=== PATIENT | female | born 1950 | race Caucasian/White ===

== ENCOUNTER 2016-05-12 17:12 | Emergency (ER) | payer OTHER ==
[~2016-05-12] VITALS: Ht 160 cm; Wt 108.9 kg
[~2016-05-12 17:12] MED LIST: AUGMENTIN 500-1 EACH PO; VALIUM2 M1 PO
--- NOTE | 2016-05-12 17:25 | ED MVC/FALL/TRAUMA COMPLAINT ---
History of Present Illness General Chief Complaint: Low Back Pain/Injury Stated Complaint: BIBA BACK PAIN Source: patient, old records Exam Limitations: no limitations Vital Signs & Intake/Output Vital Signs & Intake/Output Vital Signs Date Time Temp Pulse Resp B/P Pulse O2 O2 Flow FiO2 Ox Delivery Rate 05/12 1940 72 18 149/69 95 Room Air 05/12 1719 78 16 154/72 97 Room Air Allergies Coded Allergies: NO KNOWN ALLERGIES (NKA 05/12/16) Reconcile Medications Augmentin (Augmentin 500-125 Tablet) 1 EACH TABLET 1 TAB PO TID DOG BITE Benazepril HCl 40 MG TABLET 1 TAB PO DAILY HTN (Reported) Cyclobenzaprine HCl 5 MG TABLET 1 TAB PO TIDPRN PRN PAIN Diazepam (Valium) 2 MG TABLET 1-2 TAB PO TID PRN DIZZINESS Duloxetine HCl (Cymbalta) 60 MG CAPSULE.DR 1 CAP PO DAILY BACK PAIN (Reported ) Levothyroxine Sodium 50 MCG TABLET 1 TAB PO DAILY HYPOTHYROID (Reported) Methylprednisolone. (Medrol) 4 MG TAB.DS.PK 1 DP PO AD RADICULOPATHY 6 on day 1 then reduce by one tablet daily until gone Multiple Vitamin (Multivitamins) 1 EACH TABLET 1 TAB PO DAILY VITAMINS ( Reported) Oxycodone HCl 10 MG TABLET 1 TAB PO TID PRN PAIN Zolpidem Tartrate (Ambien) 10 MG TABLET 1 TAB PO QPMP INSOMNIA (Reported) Triage Note: BIBA FROM HOME C/O BACK PAIN S/P FALL. HX SPINAL STENOSIS. PT SLIPPED AND FELL BACKWARDS ON STEPS TODAY. PAIN WAS PROGRESSIVELY GETTING WORSE. NO RELIEF WITH PERCOCET OR LIDOCAINE PATCH. DENIES HEADSTRIKE/LOC. Triage Nurses Notes Reviewed? yes Onset: Abrupt Duration: hour(s): (8), constant, waxing and waning Timing: recent history Severity: moderate Severity Numbers: 9 Injuries/Fall Location: back Method of Injury: TWISTED Loss of Consciousness: no loss of consciousness Modifying Factors: Improves With: rest. Worsens With: movement, palpation. Associated Symptoms: DENIES HPI: 65-year-old female history of hypertension hypothyroid chronic back pain for which she is in pain management presents complaining of an exacerbation of her pain after she states she almost fell around 9:00 this morning causing her to twist her back. She now presents complaining of moderate to severe aching left lower back pain radiating down her left leg unrelieved with taking her 's Percocet and using a Lidoderm patch. There was no fall to the ground no other trauma she denies any hip knee or foot pain no numbness or tingling. No urinary or bowel incontinence no fever no chills her last dose of Percocet was at 2 PM this afternoon symptoms are worse with change of position better at rest (SUE ROCHA) Past History Travel History Traveled to [place] past 21 day No Medical History Any Pertinent Medical History? see below for history Neurological: NONE EENT: NONE Cardiovascular: hypertension Respiratory: NONE Gastrointestinal: NONE Hepatic: NONE Renal: NONE Musculoskeletal: BACK PAIN Psychiatric: NONE Endocrine: hypothyroidism Blood Disorders: NONE Cancer(s): NONE PARALEGALS/Reproductive: NONE Tetanus Vaccine: 07/09/15 Surgical History Surgical History: non-contributory Psychosocial History What is your primary language [place]al[place] Tobacco Use: Never used ETOH Use: occasional use Illicit Drug Use: denies illicit drug use Family History Hx Contributory? No (SUE ROCHA) Review of Systems Review of Systems Constitutional: Reports: see HPI. All Other Systems: Reviewed and Negative Comments Review of systems: See HPI, All other systems negative. Constitutional, no chills no fever, no malaise no weight loss HEENT: no sore throat no congestion, Cardiovascular: No chest pain , no palpitation Skin, no rashes, no change in skin Respiratory: No dyspnea no cough GI: No nausea no vomiting, no diarrhea, : No dysuria No hematuria, no frequency, no discharge Muscle skeletal: No joint pain, no joint swelling, back pain, no neck pain, Neurologic: no headache Psych: No stress Heme/endocrine: No bruising no bleeding Immunology: No lymphadenopathy, (SUE ROCHA) Physical Exam Physical Exam General Appearance: well developed/nourished, no apparent distress, alert, awake Comments: Well-developed well-nourished person in no acute distress HEENT: Normal EENT exam; PERRL, EOMI, no nystagmus. HEAD is atraumatic. moist mucous membranes. Neck: Supple, normal range of motion Back: Left paralumbar muscle tenderness to palpation, no CVA tenderness. Full range of motion Cardiovascular: Regular rate and rhythms no murmurs = Respiratory:=No respiratory distress. Patient speaking in full complete sentences. Breath sounds clear to auscultation bilaterally: NO W/R/R Abdomen: Soft, obese nontender nondistended, no appreciable organomegaly. Normal bowel sounds. No rebound/guarding, No appreciable enlargement of the abdominal aorta, No ascites. Upper Extremity: No edema, full range of motion of extremities, normal and equal pulses bilaterally, 5 out of 5 strength noted to bilateral upper and lower extremities Hip/Pelvis: Atraumatic/Stable. FROM. No pain with pelvic compression Knee: Atraumatic/stable. FROM. No joint swelling, no effusion. No laxity. Negative porter/anterior drawer test. No pain with ROM Leg: Atraumatic. Nontender. No edema, 5 out of 5 strength in the lower extremity, normal dorsiflexion of great toe bilaterally, gross sensation is intact Ankle/Foot: Atraumatic/stable. Skin intact. FROM. No swelling, no effusion. No laxity on exam Pulses: Normal/equal DP/PT pulses bilaterally. Brisk cap refill Neuro: Alert oriented x3, motor sensory normal, There were no obvious focal neurologic abnormalities. Skin: No appreciable rash on exposed skin, skin is warm and dry. Psych: Mood and affect is normal, memory and judgment is normal. Core Measures ACS in differential dx? No Severe Sepsis Present: No Septic Shock Present: No (TURNER GRUBER,SUE) Progress Differential Diagnosis: C/T/L spine injury, ext injury, pelvis injury, spinal cord injury Plan of Care: Orders Procedure Date/time Status CT LUMB SPINE WO IV CONTRAST 05/12 1733 Active Current Medications Sig/Aye Start time Last Medication Dose Stop Time Status Admin Diazepam 2.5 MG ONCE ONE 05/12 1744 UNVr (Valium) 05/12 1745 Hydromorphone HCl 1 MG ONCE ONE 05/12 1744 UNVr (Dilaudid) 05/12 1745 Patient medicated Dilaudid 1 mg IV Valium IV CAT scan ordered case discussed with Dr. Colby. Repeat evaluation patient reports no relief of pain patient medicated with morphine 6 mg IV 05/12/2016 7:37:16 PM discussed with the patient and her at length all of her CAT scan findings incidental findings. Patient feels comfortable with discharge at this time reports morphine has helped with pain I discussed with the patient at length all of their results. I had an extensive conversation regarding need for close follow up with their primary care physician this week as well as return precautions. I answered all of their questions, they feel comfortable with the plan and follow-up care. I discussed the medications that they will receive with the patient. I gave them signs and symptoms that could indicate an adverse reaction. I have advised them to limit their activities until they can see how they respond to the medication. (TURNER GRUBER,SUE) Diagnostic Imaging: Viewed by Me: CT Scan. Discussed w/RAD: CT Scan. Radiology Impression: PATIENT: YOVANA UNDERWOOD PRESENT AGE: 65 PATIENT ACCOUNT NO: [id number] : 49 LOCATION: [facility] ORDERING PHYSICIAN: SUE GRUBER SERVICE DATE: 05/12/16 EXAM TYPE: CAT - CT LUMB SPINE WO IV CONTRAST EXAMINATION: CT LUMBAR SPINE WITHOUT CONTRAST CLINICAL INFORMATION: Fall and left low back pain. COMPARISON: None TECHNIQUE: Helical non-contrast CT images were obtained through the lumbar spine and 1.25 and 2.5 mm axial reconstructions were reviewed along with sagittal and coronal MPRs. DLP : 1086.23 mGy-cm FINDINGS: There is a mild retrosubluxation and mild disc space narrowing at L1-L2. A mild anterolisthesis is visible at L4-L5 and L5-S1. There is moderate loss of disc height at L5-S1. The S1 vertebra is transitional and lumbarized in appearance. No acute fracture is seen. There are [id number] degenerative changes of the SI joints. The paraspinal soft tissues are unremarkable. A large cyst arises from the lower pole right kidney, incompletely visualized. Sigmoid colonic diverticulosis is noted. SPINAL LEVELS: L1-L2: Retrosubluxation and disc bulge with endplate spurring and mild facet arthropathy. Slight narrowing of the central canal. Patent foramina. L2-L3: Mild retrosubluxation and disc bulge with mild facet arthropathy and mild foraminal narrowing. L3-L4: Disc bulge and hypertrophic facet arthropathy present. No significant central canal stenosis. A left foraminal disc protrusion results in mild mass effect upon the exiting left L3 nerve root. L4-L5: Mild anterior subluxation and severe facet arthropathy resulting in high-grade central canal stenosis with thecal sac compression. Bony encroachment upon the lateral recesses as well. Mild foraminal narrowing. L5-S1: Mild anterior subluxation and disc space narrowing with mild central canal stenosis and severe facet arthropathy. Mild to moderate bilateral foraminal narrowing. IMPRESSION: No acute fracture. Multilevel degenerative disc disease and facet arthropathy with mild subluxations. Left foraminal disc protrusion resulting in mild mass effect upon the exiting left L3 nerve root. Mild anterior subluxation and exuberant facet arthropathy at L4-L5 resulting in high-grade central canal stenosis. Sigmoid colonic diverticulosis. Partially visualized large right renal cyst. DICTATED BY: BRYAN ISBELL MD DATE/TIME DICTATED:05/12/161905 MONOTYPE CASTER:GIBLERTO DATE/TIME TRANSCRIBED:05/12/161905 CONFIDENTIAL, DO NOT COPY WITHOUT APPROPRIATE AUTHORIZATION. <Electronically signed in Other Vendor System> SIGNED BY: BRYAN ISBELL MD 05/12/161915 (SUE ROCHA) Departure Departure Time of Disposition: 1928 Disposition: HOME OR SELF CARE Condition: Stable Clinical Impression Primary Impression: Lumbar radiculopathy Secondary Impressions: Diverticulosis, Renal cyst Referrals: RAINA EDWARD,RIVERA BILL APRN (PCP/Family) Additional Instructions: Follow-up with your family spine physician or Dr. Diaz. Oxycodone Flexeril as directed use caution as this is a narcotic and will make you drowsy no driving or drinking alcohol while taking interchange ice and heat, Medrol Dosepak as directed concerns these prescriptions were sent to [facility] pharmacy Departure Forms: Customer Survey General Discharge Information Prescriptions: Current Visit Scripts Oxycodone HCl 1 TAB PO TID PRN PAIN #15 TAB Methylprednisolone. (Medrol) 1 DP PO AD #1 DP 6 on day 1 then reduce by one tablet daily until gone Cyclobenzaprine HCl 1 TAB PO TIDPRN PRN PAIN #12 TAB (SUE ROCHA) PA/AUDITING CODER Co-Sign Statement Statement: ED Attending supervision documentation- x I saw and evaluated the patient. I have also reviewed all the pertinent lab results and diagnostic results. I agree with the findings and the plan of care as documented in the PA's/AUDITING CODER's documentation. [] I have reviewed the ED Record and agree with the PA's/AUDITING CODER's documentation. [] Additions or exceptions (if any) to the PAs/AUDITING CODER's note and plan are summarized below: [] (TREVIN EDWARD,SHIRA)
[2016-05-12] MEDS ORDERED: BENAZEPRIL HCL40 MG PO (17:42)
[2016-05-12] MEDS ORDERED: AMBIEN10 M1 PO (17:42)
[2016-05-12] MEDS ORDERED: LEVOTHYROXINE50 MCG PO (17:42)
[2016-05-12] MEDS ORDERED: CYMBALTA60 M1 PO (17:42)
[2016-05-12] MEDS ORDERED: MULTIVITAMINS1 EAC9 PO (17:43)
--- NOTE | 2016-05-12 19:16 | CT SCAN REPORT ---
EXAMINATION: CT LUMBAR SPINE WITHOUT CONTRAST CLINICAL INFORMATION: Fall and left low back pain. COMPARISON: None TECHNIQUE: Helical non-contrast CT images were obtained through the lumbar spine and 1.25 and 2.5 mm axial reconstructions were reviewed along with sagittal and coronal MPRs. DLP: 1086.23 mGy-cm FINDINGS: There is a mild retrosubluxation and mild disc space narrowing at L1-L2. A mild anterolisthesis is visible at L4-L5 and L5-S1. There is moderate loss of disc height at L5-S1. The S1 vertebra is transitional and lumbarized in appearance. No acute fracture is seen. There are vgtu-[id number] degenerative changes of the SI joints. The paraspinal soft tissues are unremarkable. A large cyst arises from the lower pole right kidney, incompletely visualized. Sigmoid colonic diverticulosis is noted. SPINAL LEVELS: L1-L2: Retrosubluxation and disc bulge with endplate spurring and mild facet arthropathy. Slight narrowing of the central canal. Patent foramina. L2-L3: Mild retrosubluxation and disc bulge with mild facet arthropathy and mild foraminal narrowing. L3-L4: Disc bulge and hypertrophic facet arthropathy present. No significant central canal stenosis. A left foraminal disc protrusion results in mild mass effect upon the exiting left L3 nerve root. L4-L5: Mild anterior subluxation and severe facet arthropathy resulting in high-grade central canal stenosis with thecal sac compression. Bony encroachment upon the lateral recesses as well. Mild foraminal narrowing. L5-S1: Mild anterior subluxation and disc space narrowing with mild central canal stenosis and severe facet arthropathy. Mild to moderate bilateral foraminal narrowing. IMPRESSION: No acute fracture. Multilevel degenerative disc disease and facet arthropathy with mild subluxations. Left foraminal disc protrusion resulting in mild mass effect upon the exiting left L3 nerve root. Mild anterior subluxation and exuberant facet arthropathy at L4-L5 resulting in high-grade central canal stenosis. Sigmoid colonic diverticulosis. Partially visualized large right renal cyst.
[2016-05-12] MEDS ORDERED: OXYCODONE HCL10 M2 PO (19:30)
[2016-05-12] MEDS ORDERED: CYCLOBENZAPRINE5 M2 PO (19:30)
[2016-05-12] MEDS ORDERED: MEDROL4 M2 PO (19:30)
[2016-05-12 19:40] VITALS: BP 149/69
== END 2016-05-12 19:47 ==
LOC: ERH 17:12
DX: M54.16 Radiculopathy, lumbar region (principal); K57.90 Diverticulosis of intestine, part unspecified, without perforation or abscess without bleeding; N28.1 Cyst of kidney, acquired
CPT/HCPCS: 96374; 96375; 96376; J3360

== ENCOUNTER → 2017-05-09 | Day surgery (SDC) | payer OTHER ==
[~2017-05-09] VITALS: Ht 160 cm; Wt 102.1 kg
[~2017-05-09] MED LIST changes: +AMBIEN10 M1 PO; +BENAZEPRIL HCL40 MG PO; +CALTRATE 600 +1 EACH PO; +CYCLOBENZAPRINE5 M2 PO; +CYMBALTA60 M1 PO; +LEVOTHYROXINE50 MCG PO; +MEDROL4 M2 PO; +MULTIVITAMINS1 EAC9 PO; +OXYCODONE HCL10 M2 PO; +VITAMIN D2000 UNI1 PO
--- NOTE | 2017-05-09 12:45 | Operative Report ---
Operative/Inv Procedure Report Surgery Date: 05/09/17 Name of Procedure: Cataract extraction with intraocular lens implantation right eye Pre-Operative Diagnosis: Age-related cataract right eye Post-Operative Diagnosis: Same Estimated Blood Loss: none Surgeon/Emulsion Operator: Calin EDWARD,Jeremias Lugo Anesthesia: local monitored anesthesi Complications: None Operative/Procedure Note Note: Preoperatively the patient was noted to have 20/30 vision in the right eye with a decrease with glare testing down to 20/50. The risks, benefits, and alternatives to surgery were discussed at length with the patient. Informed consent was obtained. The patient was brought to the operating room where the right eye was prepped and draped in the normal sterile fashion. A speculum was placed on the right eye with good exposure. A stab incision was made using a paracentesis blade. Intracameral lidocaine was placed. Viscoelastic was used to form the anterior chamber. A clear corneal incision was made using keratome blade. A continuous curvilinear capsulorrhexis was made using a cystotome needle followed by Utrata forceps. There was no extension of the rhexis. Hydrodissection was performed using balanced salt solution. The cataract was removed using a stop and chop technique. Residual cortex was removed using coaxial irrigation and aspiration. The capsule was polished using irrigation and aspiration and the posterior capsule was cleaned using a balanced salt solution jet. There was no residual lens material inside the eye. The capsular bag was reformed using viscoelastic. An intraocular lens PCBOO of power 24.0 was verified and confirmed. It was loaded into an injector and injected into the eye. The lens was placed entirely within the capsular bag. Viscoelastic was evacuated using irrigation and aspiration. The wounds were stromally hydrated and the eye filled to physiologic pressure using balanced salt solution. Intracameral cefuroxime was placed. Speculum was removed and a shield was placed on the eye. The patient was brought to the recovery area without incident. Instructions were given to follow-up the next day for routine postoperative care.
== END ==
LOC: STS 01:41
DX: H25.9 Unspecified age-related cataract (principal); I10 Essential (primary) hypertension; E03.9 Hypothyroidism, unspecified; M19.90 Unspecified osteoarthritis, unspecified site
CPT/HCPCS: J2250; V2632